=== PATIENT | female | born 1950 | race Caucasian/White ===

== ENCOUNTER → 2017-03-30 | Outpatient (CLI) | payer OTHER, MEDICARE ==
[~2017-03-30] MED LIST: APRE1TAB2 PO; ASPI-496 PO; CALC-141 PO; CEFU250T66 PO; CHOL20002 PO; CHOL378P PO; DIPH1TAB PO; FOLI0.4T2 PO; LACT1CAP35 PO; LOSA25TA5 PO; META-23 PO; METH2.5T SC; MULT-658 PO; OCTR200V2 SC; PRAV20TA2 PO; TRAZ50TA18 PO; VALS1TAB19 PO
== END | disposition home or self-care (01) ==
LOC: CFH 12:32
PROVIDERS: ATTEND Internal Medicine Cardiovascular Disease
DX: I07.1 Rheumatic tricuspid insufficiency (principal); I10 Essential (primary) hypertension; Z85.3 Personal history of malignant neoplasm of breast; Z92.3 Personal history of irradiation; Z90.10 Acquired absence of unspecified breast and nipple
CPT/HCPCS: 93306

== ENCOUNTER → 2017-09-28 | Outpatient (CLI) | payer OTHER, MEDICARE | LOC: CFH 07:06 | PROVIDERS: ATTEND Family Medicine | DX: R92.2 Inconclusive mammogram (principal) | CPT/HCPCS: 76377; 76642 ==

== ENCOUNTER → 2017-11-09 | Outpatient (CLI) | payer OTHER, MEDICARE | END | disposition home or self-care (01) | LOC: CFH 06:37 | PROVIDERS: ATTEND Specialist | DX: M62.511 Muscle wasting and atrophy, not elsewhere classified, right shoulder (principal); R60.0 Localized edema ==

== ENCOUNTER → 2018-01-25 | Outpatient (CLI) | payer OTHER, MEDICARE ==
[~2018-01-25] MED LIST changes: +TRAZ-136 PO; -TRAZ50TA18 PO
== END | disposition home or self-care (01) ==
LOC: CFH 12:23
PROVIDERS: ATTEND Family Medicine
DX: N63.14 Unspecified lump in the right breast, lower inner quadrant (principal); Z85.3 Personal history of malignant neoplasm of breast
CPT/HCPCS: 76642; 77066

== ENCOUNTER → 2018-02-03 | Outpatient (CLI) | payer OTHER, MEDICARE ==
[~2018-02-03] MED LIST changes: +LIDOCAINE 1%, 20ML ONE; +LIDOCAINE 1%-EPI 1:100K, 20ML ONE; +SODIUM BICARBONATE 4.0%, 5ML ONE
== END | disposition home or self-care (01) ==
LOC: CFH 08:04
PROVIDERS: ATTEND Family Medicine
DX: N60.21 Fibroadenosis of right breast (principal); N63.10 Unspecified lump in the right breast, unspecified quadrant; Z85.3 Personal history of malignant neoplasm of breast; Z98.890 Other specified postprocedural states; Z79.82 Long term (current) use of aspirin; Z79.899 Other long term (current) drug therapy
CPT/HCPCS: 19083; 77065; 88305; J3490

== ENCOUNTER 2018-03-09 08:01 | Day surgery (SDC) | payer OTHER, MEDICARE ==
[~2018-03-09] VITALS: Ht 154.9 cm; Wt 58.7 kg
[~2018-03-09 08:01] MED LIST changes: +BUPIVACAINE/PF-EPI 0.5% 1:200K ONE; +CARV3.1212 PO; +CHLO25TA PO; -CHOL20002 PO; +CHOL200052 PO; +DULO30CA2 PO; +FLUT9.9S NS; -LIDOCAINE 1%, 20ML ONE; -LIDOCAINE 1%-EPI 1:100K, 20ML ONE; +LORA10TA75 PO; -LOSA25TA5 PO; +LOSA25TA6 PO; +MIRA50TA PO; +POTA20TA89 PO; +ROSU5TAB PO; -SODIUM BICARBONATE 4.0%, 5ML ONE; +TRAM50TA2 PO
[2018-03-09] MEDS ORDERED: SODIUM BICARBONATE 4.0%, 5ML ONE (09:15)
[2018-03-09] MEDS ORDERED: LIDOCAINE 1%, 20ML ONE (09:15)
[2018-03-09] MEDS ORDERED: LIDOCAINE 1%-EPI 1:100K, 20ML ONE (09:15)
[2018-03-09 10:06] VITALS: BP 134/85
[2018-03-09] MEDS ORDERED: LACTATED RINGERS 1,000 ML IV SCH (10:12)
[2018-03-09] MEDS ORDERED: ACETAMINOPHEN 500 MG TABLET PO ONE (10:30)
[2018-03-09] MEDS ORDERED: SCOPOLAMINE PATCH, 1.5MG PATCH.TD72 TD ONE (10:30)
[2018-03-09] MEDS ORDERED: GABAPENTIN 300 MG CAPSULE PO ONE (10:30)
[2018-03-09] MEDS ORDERED: ONDANSETRON ODT 8 MG PO ONE (10:30)
[2018-03-09] MEDS ORDERED: MIDAZOLAM 1 MG/ML, 2ML ONE (10:54)
[2018-03-09] MEDS ORDERED: FENTANYL PF 250 MCG/5ML ONE (10:54)
[2018-03-09] MEDS ORDERED: DEXAMETHASONE 4 MG/ML, 1ML ONE (11:45)
[2018-03-09] MEDS ORDERED: CEFAZOLIN 1,000 MG ONE (11:46)
[2018-03-09] MEDS ORDERED: LABETALOL 5MG/ML, 20ML IV PRN (12:00)
[2018-03-09] MEDS ORDERED: MEPERIDINE/PF 25MG/0.5ML IVPush PRN (12:00)
[2018-03-09] MEDS ORDERED: HYDROmorphone 1 MG/ML, 1ML IV PRN (12:00)
[2018-03-09] MEDS ORDERED: ONDANSETRON 2MG/ML, 2ML IV PRN (12:00)
[2018-03-09] MEDS ORDERED: OXYcodone 5 MG/5 ML ORAL.SOL UDC PO PRN (12:00)
[2018-03-09] MEDS ORDERED: HALOPERIDOL 5 MG/ML IV PRN (12:00)
[2018-03-09] MEDS ORDERED: hydrALAzine 20 MG/ML, 1ML IV PRN (12:00)
[2018-03-09] MEDS ORDERED: ROCURONIUM 10MG/ML,5ML ONE (12:23)
[2018-03-09] MEDS ORDERED: PROPOFOL 10 MG/ML, 20ML ONE (12:23)
[2018-03-09] MEDS ORDERED: METOPROLOL 1 MG/ML, 5ML ONE (12:24)
[2018-03-09] MEDS ORDERED: OXYcodone 5 MG/5 ML ORAL.SOL UDC ONE (12:44)
[2018-03-09] MEDS ORDERED: FENTANYL PF 100 MCG/2ML ONE (12:44)
[2018-03-09] MEDS: FENTANYL PF 100 MCG/2ML IV PRN ×3 (12:56→13:30)
== END 2018-03-09 14:40 | disposition home or self-care (01) ==
LOC: CFH 08:01 → EDSTATUS 10:30 → OUT 14:40
PROVIDERS: ATTEND Surgery
DX: N60.31 Fibrosclerosis of right breast (principal); N64.89 Other specified disorders of breast; E78.5 Hyperlipidemia, unspecified; I10 Essential (primary) hypertension; Z87.39 Personal history of other diseases of the musculoskeletal system and connective tissue; Z98.890 Other specified postprocedural states; Z79.899 Other long term (current) drug therapy; Z96.653 Presence of artificial knee joint, bilateral; Z90.710 Acquired absence of both cervix and uterus; Z90.11 Acquired absence of right breast and nipple; Z98.49 Cataract extraction status, unspecified eye; Z72.89 Other problems related to lifestyle
CPT/HCPCS: 19285; 19301; 76098; 77065; 88305; 88307; 93005; J0690; J1100; J2250; J2704; J3010; J3490; J7120; Q0162

== ENCOUNTER 2019-01-26 13:52 | Outpatient (CLI) | payer OTHER, MEDICARE | END 2019-01-26 23:59 | disposition home or self-care (01) | LOC: CFH 13:52 | PROVIDERS: ATTEND Family Medicine | DX: N63.10 Unspecified lump in the right breast, unspecified quadrant (principal) | CPT/HCPCS: 76642; 77066; G0279 ==

== ENCOUNTER → 2019-12-07 | Outpatient (CLI) | payer OTHER, MEDICARE ==
[~2019-12-07] MED LIST changes: -BUPIVACAINE/PF-EPI 0.5% 1:200K ONE; +CARV6.2512 PO; +LOSA25TA25 PO; -LOSA25TA6 PO; -TRAZ-136 PO; +TRAZ50TA66 PO; +methotrexate INJ
[2019-12-07 10:25] LABS: BASOPHILS # (AUTO) 0.02 x10^3/uL (0-0.1); BASOPHILS % (AUTO) 0 % (0-1); EOSINOPHILS % (AUTO) 2 % (1-7); LYMPHOCYTES # (AUTO) 1.39 x10^3/uL (1-3.4); LYMPHOCYTES % (AUTO) 29 % (22-44); MD NO; MEAN CORPUSCULAR HEMOGLOBIN 32.2 pg (27.0-34.8); MEAN CORPUSCULAR HGB CONC 33.2 g/dL (32.4-35.8); MEAN CORPUSCULAR VOLUME 97.1 fL (80-100); MONOCYTES # (AUTO) 0.39 x10^3/uL (0.2-0.8); MONOCYTES % (AUTO) 8 % (2-9); NEUTROPHILS # (AUTO) 2.86 x10^3/uL (1.8-6.8); NEUTROPHILS % (AUTO) 60 % (42-75); PLATELET COUNT 259 x10^3/uL (130-400); RED BLOOD COUNT 3.87 x10^6/uL (3.82-5.3); RED CELL DISTRIBUTION WIDTH 13.4 % (9.6-15.2)
[2019-12-07 10:28] LABS: MICROSCOPIC AUTO
[2019-12-07 10:33] LABS: INTERNATIONAL NORMALIZED RATIO 0.92 (0.93-1.1); PROTHROMBIN TIME 9.7 Seconds (9.6-11.5)
[2019-12-07 10:37] LABS: ALBUMIN 4.2 g/dL (3.4-5.0); ANION GAP 5 mmol/L (5-15); CALCIUM 8.9 mg/dL (8.5-10.1); CHLORIDE 103 mmol/L (98-107); CREATININE 0.78 mg/dL (0.55-1.02)
[2019-12-07 10:52] LABS: ALANINE AMINOTRANSFERASE 28 U/L (12-78); ALKALINE PHOSPHATASE 58 U/L (45-117); BILIRUBIN,TOTAL 0.4 mg/dL (0.2-1.0); TOTAL PROTEIN 7.6 g/dL (6.4-8.2)
== END | disposition home or self-care (01) ==
LOC: STAR 09:26
PROVIDERS: ATTEND Urology
DX: Z01.818 Encounter for other preprocedural examination (principal); N30.10 Interstitial cystitis (chronic) without hematuria; R94.31 Abnormal electrocardiogram [ECG] [EKG]
CPT/HCPCS: 36415; 80053; 81001; 85025; 85610; 87086; 93005

== ENCOUNTER 2019-12-12 13:08 | Day surgery (SDC) | payer OTHER, MEDICARE ==
[~2019-12-12] VITALS: Ht 154.9 cm; Wt 57.8 kg
[2019-12-12] MEDS ORDERED: CHLORHEXIDINE 15 ML UDC MM ONE (14:00)
[2019-12-12] MEDS ORDERED: LACTATED RINGERS 1,000 ML IV SCH (14:01)
[2019-12-12 14:02] VITALS: BP 134/67
[2019-12-12] MEDS ORDERED: LORazepam 2 MG/ML, 1ML IVPush PRN (16:00)
[2019-12-12] MEDS ORDERED: METHOCARBAMOL 1,000 MG in DEXTROSE 5% 100 ML IV PRN (16:00)
[2019-12-12] MEDS ORDERED: ALBUTEROL/IPRATROPIUM 2.5MG/0.5MG, 3 ML NPPB PRN (16:00)
[2019-12-12] MEDS ORDERED: ONDANSETRON 2MG/ML, 2ML IVPush PRN (16:00)
[2019-12-12] MEDS ORDERED: DIPHENHYDRAMINE 50 MG/ML, 1ML IVPush PRN (16:00)
[2019-12-12] MEDS ORDERED: HYDROcodone/APAP 7.5-325MG/15ML UDC PO PRN (16:00)
[2019-12-12] MEDS ORDERED: hydrALAzine 20 MG/ML, 1ML IV PRN (16:00)
[2019-12-12] MEDS ORDERED: MIDAZOLAM 1 MG/ML, 2ML IV PRN (16:00)
[2019-12-12] MEDS ORDERED: OXYcodone 5 MG/5 ML ORAL.SOL UDC PO PRN (16:00)
[2019-12-12] MEDS ORDERED: EPHEDRINE 50 MG/ML, 1ML IM PRN (16:00)
[2019-12-12] MEDS ORDERED: ACETAMINOPHEN 325 MG TABLET PO PRN (16:00)
[2019-12-12] MEDS ORDERED: LABETALOL 5MG/ML, 20ML IV PRN (16:00)
[2019-12-12] MEDS ORDERED: HALOPERIDOL 5 MG/ML IV PRN (16:00)
[2019-12-12] MEDS ORDERED: KETOROLAC 30 MG/1 ML IV PRN (16:00)
[2019-12-12] MEDS ORDERED: EPHEDRINE 50 MG/ML, 1ML IVPush PRN (16:00)
[2019-12-12] MEDS ORDERED: METOCLOPRAMIDE 5 MG/ML, 2ML IVPush PRN (16:00)
[2019-12-12] MEDS ORDERED: MEPERIDINE/PF 25MG/0.5ML IVPush PRN (16:00)
[2019-12-12] MEDS ORDERED: DIAZEPAM 5 MG/ML, 2ML IVPush PRN (16:00)
[2019-12-12] MEDS ORDERED: PROPOFOL 10 MG/ML, 20ML ONE (16:26)
[2019-12-12] MEDS ORDERED: LIDOCAINE-MPF 2% ,5ML ONE (16:26)
[2019-12-12] MEDS ORDERED: DEXAMETHASONE 4 MG/ML, 1ML ONE (16:26)
[2019-12-12] MEDS ORDERED: MIDAZOLAM 1 MG/ML, 2ML ONE (16:26)
[2019-12-12] MEDS ORDERED: GLYCOPYRROLATE 0.2MG/1ML, 5ML ONE (16:26)
[2019-12-12] MEDS ORDERED: FENTANYL PF 250 MCG/5ML ONE (16:27)
[2019-12-12] MEDS ORDERED: ROCURONIUM 10 MG/ML,10ML ONE (16:32)
[2019-12-12] MEDS ORDERED: CEFAZOLIN 1,000 MG ONE (16:32)
[2019-12-12] MEDS ORDERED: ONDANSETRON 2MG/ML, 2ML ONE (16:50)
[2019-12-12] MEDS ORDERED: ACETAMINOPHEN 650 MG/20.3 ML UDC ONE (17:19)
[2019-12-12] MEDS ORDERED: OXYcodone 5 MG/5 ML ORAL.SOL UDC ONE (17:19)
[2019-12-12] MEDS ORDERED: DIAZEPAM 5 MG/ML, 2ML ONE (17:19)
[2019-12-12] MEDS ORDERED: FENTANYL PF 100 MCG/2ML ONE (17:20)
[2019-12-12] MEDS ORDERED: ALBUTEROL SULFATE 2.5 MG/3 ML ONE (17:21)
[2019-12-12] MEDS: FENTANYL PF 100 MCG/2ML IV PRN ×2 (17:24→17:42)
[2019-12-12] MEDS ORDERED: KETOROLAC 30 MG/1 ML ONE (17:32)
[2019-12-12] MEDS ORDERED: HYDROmorphone 1 MG/ML, 1ML INJ ONE (17:48)
[2019-12-12] MEDS: HYDROmorphone 1 MG/ML, 1ML INJ IVPush PRN ×3 (17:51→18:28)
[2019-12-12] MEDS ORDERED: MORPHINE SULFATE 4 MG/ML, 1ML ONE ×2 (18:05→18:26)
[2019-12-12] MEDS: morphine SULFATE 10 MG/ML, 1ML IVPush PRN ×2 (18:40→19:00)
[2019-12-12] MEDS ORDERED: HYDR-3237 PO (21:05)
[2019-12-12 21:35] VITALS: BP 115/53
== END 2019-12-12 21:50 | disposition home or self-care (01) ==
LOC: OUT 13:08 → 4NE 20:27 → OUT 21:50
PROVIDERS: ATTEND Urology
DX: R39.82 Chronic bladder pain (principal); Z11.59 Encounter for screening for other viral diseases; N30.10 Interstitial cystitis (chronic) without hematuria; N32.9 Bladder disorder, unspecified; R39.15 Urgency of urination; R35.0 Frequency of micturition; R35.1 Nocturia; N30.90 Cystitis, unspecified without hematuria; N94.10 Unspecified dyspareunia; I10 Essential (primary) hypertension; M19.90 Unspecified osteoarthritis, unspecified site; Z79.891 Long term (current) use of opiate analgesic; Z79.899 Other long term (current) drug therapy; Z80.52 Family history of malignant neoplasm of bladder
CPT/HCPCS: 36415; 52234; 87635; 88305; 94640; J0690; J1100; J1170; J1885; J2250; J2270; J2405; J2704; J3010; J3360; J7120; G0378

== ENCOUNTER → 2020-03-06 | Outpatient (CLI) | payer OTHER, MEDICARE ==
[~2020-03-06] MED LIST changes: +HYDR-3237 PO
== END | disposition home or self-care (01) ==
LOC: CFH 08:20
PROVIDERS: ATTEND Family Medicine
DX: Z12.31 Encounter for screening mammogram for malignant neoplasm of breast (principal)
CPT/HCPCS: 76641; 77063; 77067

== ENCOUNTER 2020-03-17 07:21 | Outpatient (CLI) | payer OTHER, MEDICARE | END 2020-03-17 23:59 | disposition home or self-care (01) | LOC: CFH 07:21 | PROVIDERS: ATTEND Family Medicine | DX: N63.11 Unspecified lump in the right breast, upper outer quadrant (principal) | CPT/HCPCS: 76642 ==

== ENCOUNTER → 2020-04-02 | Outpatient (CLI) | payer OTHER, MEDICARE ==
[~2020-04-02] MED LIST changes: +LIDOCAINE 1%, 20ML ONE; +LIDOCAINE 2%-EPI 1:100K, 20ML ONE; +SODIUM BICARB 4.2%, 10ML SYRINGE ONE
== END | disposition home or self-care (01) ==
LOC: CFH 07:36
PROVIDERS: ATTEND Family Medicine
DX: N63.11 Unspecified lump in the right breast, upper outer quadrant (principal); Z91.030 Bee allergy status; Z79.899 Other long term (current) drug therapy; Z72.89 Other problems related to lifestyle; Z82.49 Family history of ischemic heart disease and other diseases of the circulatory system; Z83.3 Family history of diabetes mellitus
CPT/HCPCS: 19083; 77065; 88305; J3490